=== PATIENT | female | born 1975 | race Caucasian/White ===

== ENCOUNTER 2020-10-29 11:59 | Inpatient (IN) | payer OTHER ==
[2020-10-29 13:09] VITALS: BMI 22.7
[2020-10-29] MEDS ORDERED: ACETAMINOPHEN 325 MG TABLET (FP) PO PRN (13:37)
[2020-10-29] MEDS ORDERED: METHADONE HCL 10 MG TABLET (FOR DETOX USE ONLY) PO ONE (13:37)
[2020-10-29] MEDS ORDERED: MAG HYDROX/AL HYDROX/SIMETH 30 ML UNIT-DOSE CUP PO PRN (13:37)
[2020-10-29] MEDS ORDERED: MENTHOL/PHENOL 1 EACH UD MM PRN (13:37)
[2020-10-29] MEDS ORDERED: MAGNESIUM HYDROX 2400MG/30ML ORAL SUSPENSION 30 ML CUP PO PRN (13:37)
[2020-10-29] MEDS ORDERED: MAGNESIUM CITRATE 300 ML BOTTLE PO PRN (13:37)
[2020-10-29] MEDS ORDERED: NICOTINE POLACRILEX 2 MG GUM BUC PRN (13:37)
[2020-10-29] MEDS ORDERED: cloNIDine HCL 0.1 MG TABLET PO PRN (13:37)
[2020-10-29] MEDS: METHOCARBAMOL 500 MG TABLET PO PRN (15:22)
[2020-10-29] MEDS: IBUPROFEN 400 MG TABLET (FP) PO PRN (15:23)
[2020-10-29] MEDS: PRENATAL VITAMINS W/ FOLIC ACID TABLET (FP) PO SCH (15:27)
[2020-10-29] MEDS: NICOTINE 21 MG/24 HOURS TOPICAL PATCH TD SCH (15:27)
[2020-10-29] MEDS: hydrOXYzine PAMOATE 25 MG CAPSULE (FP) PO SCH ×3 (15:27→21:49)
[2020-10-29 17:12] LABS: HEMATOCRIT 34.3 % (32.4-45.2); HEMOGLOBIN 11.1 GM/dL (10.7-15.3); MCH 30.5 pg (25.7-33.7); MCHC 32.4 g/dl (32.0-36.0); MEAN PLT VOLUME 8.9 fl (7.5-11.1); PLATELET COUNT 337 K/MM3 (134-434); RBC 3.65 M/mm3 (3.60-5.2); RDW 13.8 % (11.6-15.6); WHITE BLOOD COUNT 3.4 K/mm3 (4.0-10.0)
[2020-10-29 17:21] LABS: POTASSIUM 3.3 mmol/L (3.5-5.1)
[2020-10-29 17:27] LABS: CALCIUM 8.8 mg/dL (8.5-10.1)
[2020-10-29 17:31] LABS: CREATININE 0.7 mg/dL (0.55-1.3)
[2020-10-29 17:32] LABS: BILIRUBIN,TOTAL 0.2 mg/dL (0.2-1); TOT PROT 7.6 g/dl (6.4-8.2)
[2020-10-29] MEDS: guaiFENesin/D-METHORPHAN HB 10 ML UNIT-DOSE CUPS PO PRN (18:04)
[2020-10-29] MEDS: ONDANSETRON *ODT* 4 MG TABLET SL PRN (21:48)
[2020-10-29] MEDS: MELATONIN 5 MG TABLETS PO SCH (21:49)
[2020-10-29] MEDS: THIAMINE HCL 100 MG TABLET (FP) PO SCH (21:49)
[2020-10-30] MEDS: guaiFENesin/D-METHORPHAN HB 10 ML UNIT-DOSE CUPS PO PRN ×2 (00:57→17:30)
[2020-10-30] MEDS: ALBUTEROL SO4 HFA INHALER IH PRN ×2 (02:30→06:42)
[2020-10-30] MEDS: hydrOXYzine PAMOATE 25 MG CAPSULE (FP) PO SCH ×5 (05:15→22:14)
[2020-10-30] MEDS ORDERED: METHADONE HCL 10 MG TABLET (FOR DETOX USE ONLY) ONE (08:50)
[2020-10-30] MEDS ORDERED: METHADONE HCL 5 MG TABLET (FOR DETOX USE ONLY) ONE (08:50)
[2020-10-30] MEDS ORDERED: METHADONE (DETOX) 20 MG, METHADONE (DETOX) 5 MG PO ONE (10:00)
[2020-10-30] MEDS: NICOTINE 21 MG/24 HOURS TOPICAL PATCH TD SCH (10:03)
[2020-10-30] MEDS: IBUPROFEN 400 MG TABLET (FP) PO PRN ×2 (10:03→22:14)
[2020-10-30] MEDS: METHOCARBAMOL 500 MG TABLET PO PRN ×2 (10:03→22:16)
[2020-10-30] MEDS: PRENATAL VITAMINS W/ FOLIC ACID TABLET (FP) PO SCH (10:06)
[2020-10-30] MEDS: BISMUTH SUBSALICYLATE 262 MG/15 ML BTL PO PRN (13:28)
[2020-10-30] MEDS ORDERED: POTASSIUM CHLORIDE ORAL LIQUID 20 MEQ/15 ML PO ONE ×2 (16:17→21:30)
[2020-10-30] MEDS: THIAMINE HCL 100 MG TABLET (FP) PO SCH (22:14)
[2020-10-30] MEDS: MELATONIN 5 MG TABLETS PO SCH (22:14)
[2020-10-30] MEDS: BACITRACIN 0.9 GM PACKET TP SCH (22:17)
[2020-10-30] MEDS: MINERAL OIL/PETROLAT/WATER TOPICAL CREAM 113 GM JAR TP SCH (22:17)
[2020-10-31] MEDS: ACETAMINOPHEN 325 MG TABLET (FP) PO PRN ×2 (00:53→14:47)
[2020-10-31] MEDS: guaiFENesin/D-METHORPHAN HB 10 ML UNIT-DOSE CUPS PO PRN (04:03)
[2020-10-31] MEDS: hydrOXYzine PAMOATE 25 MG CAPSULE (FP) PO SCH ×5 (06:34→22:03)
[2020-10-31] MEDS ORDERED: MASKS NR ONE (07:22)
[2020-10-31] MEDS: BACITRACIN 0.9 GM PACKET TP SCH ×2 (09:11→22:03)
[2020-10-31] MEDS: METHOCARBAMOL 500 MG TABLET PO PRN ×2 (09:14→22:04)
[2020-10-31] MEDS: IBUPROFEN 400 MG TABLET (FP) PO PRN ×2 (09:14→22:03)
[2020-10-31] MEDS: MINERAL OIL/PETROLAT/WATER TOPICAL CREAM 113 GM JAR TP SCH ×2 (09:16→22:06)
[2020-10-31] MEDS: NICOTINE 21 MG/24 HOURS TOPICAL PATCH TD SCH (09:17)
[2020-10-31] MEDS ORDERED: METHADONE HCL 10 MG TABLET (FOR DETOX USE ONLY) PO ONE (10:00)
[2020-10-31] MEDS: PRENATAL VITAMINS W/ FOLIC ACID TABLET (FP) PO SCH (10:44)
[2020-10-31] MEDS: ALBUTEROL SO4 HFA INHALER IH PRN (12:23)
[2020-10-31] MEDS: BISMUTH SUBSALICYLATE 262 MG/15 ML BTL PO PRN (19:43)
[2020-10-31] MEDS: QUEtiapine FUMARATE 50 MG TABLET PO SCH (22:03)
[2020-10-31] MEDS: THIAMINE HCL 100 MG TABLET (FP) PO SCH (22:03)
[2020-10-31] MEDS: MELATONIN 5 MG TABLETS PO SCH (22:03)
[2020-10-31] MEDS: guaiFENesin 200 MG/10 ML 10 ML UNIT-DOSE CUPS PO PRN (22:07)
[2020-11-01] MEDS: hydrOXYzine PAMOATE 25 MG CAPSULE (FP) PO SCH ×5 (06:47→21:51)
[2020-11-01] MEDS: guaiFENesin 200 MG/10 ML 10 ML UNIT-DOSE CUPS PO PRN ×3 (09:17→23:00)
[2020-11-01] MEDS ORDERED: METHADONE HCL 5 MG TABLET (FOR DETOX USE ONLY) ONE (09:26)
[2020-11-01] MEDS ORDERED: METHADONE HCL 10 MG TABLET (FOR DETOX USE ONLY) ONE (09:27)
[2020-11-01] MEDS ORDERED: MASKS NR ONE (09:28)
[2020-11-01] MEDS ORDERED: METHADONE (DETOX) 10 MG, METHADONE (DETOX) 5 MG PO ONE (10:00)
[2020-11-01] MEDS: BACITRACIN 0.9 GM PACKET TP SCH ×2 (10:05→21:50)
[2020-11-01] MEDS: MINERAL OIL/PETROLAT/WATER TOPICAL CREAM 113 GM JAR TP SCH ×2 (10:05→21:50)
[2020-11-01] MEDS: METHOCARBAMOL 500 MG TABLET PO PRN ×2 (10:11→21:52)
[2020-11-01] MEDS: PRENATAL VITAMINS W/ FOLIC ACID TABLET (FP) PO SCH (10:12)
[2020-11-01] MEDS: NICOTINE 21 MG/24 HOURS TOPICAL PATCH TD SCH (10:13)
[2020-11-01] MEDS: GABAPENTIN 400 MG CAPSULE PO SCH ×2 (13:57→21:50)
[2020-11-01] MEDS: MELATONIN 5 MG TABLETS PO SCH (21:50)
[2020-11-01] MEDS: THIAMINE HCL 100 MG TABLET (FP) PO SCH (21:50)
[2020-11-01] MEDS: QUEtiapine FUMARATE 50 MG TABLET PO SCH (21:50)
[2020-11-01] MEDS: IBUPROFEN 400 MG TABLET (FP) PO PRN (21:52)
[2020-11-02] MEDS: GABAPENTIN 400 MG CAPSULE PO SCH ×3 (07:20→22:49)
[2020-11-02] MEDS: hydrOXYzine PAMOATE 25 MG CAPSULE (FP) PO SCH ×5 (07:20→22:49)
[2020-11-02] MEDS: guaiFENesin 200 MG/10 ML 10 ML UNIT-DOSE CUPS PO PRN ×3 (07:23→22:59)
[2020-11-02] MEDS ORDERED: METHADONE HCL 10 MG TABLET (FOR DETOX USE ONLY) PO ONE (10:00)
[2020-11-02] MEDS: MINERAL OIL/PETROLAT/WATER TOPICAL CREAM 113 GM JAR TP SCH ×2 (10:07→22:49)
[2020-11-02] MEDS: NICOTINE 21 MG/24 HOURS TOPICAL PATCH TD SCH (10:07)
[2020-11-02] MEDS: PRENATAL VITAMINS W/ FOLIC ACID TABLET (FP) PO SCH (10:08)
[2020-11-02] MEDS: BACITRACIN 0.9 GM PACKET TP SCH ×2 (10:08→22:49)
[2020-11-02] MEDS: METHOCARBAMOL 500 MG TABLET PO PRN ×2 (10:09→18:29)
[2020-11-02] MEDS: ACETAMINOPHEN 325 MG TABLET (FP) PO PRN (11:44)
[2020-11-02] MEDS: ALBUTEROL SO4 HFA INHALER IH PRN (11:46)
[2020-11-02] MEDS: ONDANSETRON *ODT* 4 MG TABLET SL PRN (16:52)
[2020-11-02] MEDS: BISMUTH SUBSALICYLATE 262 MG/15 ML BTL PO PRN (20:17)
[2020-11-02] MEDS: METHYL SALICYLATE/MENTHOL OINT 30 GM TUBE TP SCH (22:49)
[2020-11-02] MEDS: QUEtiapine FUMARATE 50 MG TABLET PO SCH (22:49)
[2020-11-02] MEDS: MELATONIN 5 MG TABLETS PO SCH (22:50)
[2020-11-02] MEDS: THIAMINE HCL 100 MG TABLET (FP) PO SCH (22:50)
[2020-11-03] MEDS ORDERED: METHADONE HCL 5 MG TABLET (FOR DETOX USE ONLY) PO ONE (06:00)
[2020-11-03] MEDS: hydrOXYzine PAMOATE 25 MG CAPSULE (FP) PO SCH ×2 (06:28→10:14)
[2020-11-03] MEDS: GABAPENTIN 400 MG CAPSULE PO SCH (06:29)
[2020-11-03] MEDS: METHOCARBAMOL 500 MG TABLET PO PRN (06:31)
[2020-11-03] MEDS: IBUPROFEN 400 MG TABLET (FP) PO PRN (06:31)
[2020-11-03] MEDS: ACETAMINOPHEN 325 MG TABLET (FP) PO PRN (08:34)
[2020-11-03 09:29] VITALS: BP 112/77; PULSE 781; TEMP 98.2
[2020-11-03] MEDS: PRENATAL VITAMINS W/ FOLIC ACID TABLET (FP) PO SCH (10:14)
[2020-11-03] MEDS: MINERAL OIL/PETROLAT/WATER TOPICAL CREAM 113 GM JAR TP SCH (10:14)
[2020-11-03] MEDS: BACITRACIN 0.9 GM PACKET TP SCH (10:15)
[2020-11-03] MEDS: NICOTINE 21 MG/24 HOURS TOPICAL PATCH TD SCH (10:15)
[2020-11-03] MEDS: METHYL SALICYLATE/MENTHOL OINT 30 GM TUBE TP SCH (10:15)
[2020-11-03] MEDS: guaiFENesin 200 MG/10 ML 10 ML UNIT-DOSE CUPS PO PRN (10:19)
[2020-11-03] MEDS: ONDANSETRON *ODT* 4 MG TABLET SL PRN (11:38)
== END 2020-11-03 11:39 | disposition other institution (70) | DRG 773 ==
LOC: YASAS 11:59 → Y6N 14:34
PROVIDERS: ADMIT Allergy & Immunology; ATTEND Allergy & Immunology
PROC: HZ2ZZZZ Detoxification Services for Substance Abuse Treatment (ICD-10-PCS; principal; 2020-10-29)
DX: F11.23 Opioid dependence with withdrawal (principal); F10.230 Alcohol dependence with withdrawal, uncomplicated; F14.20 Cocaine dependence, uncomplicated; F16.20 Hallucinogen dependence, uncomplicated; F17.210 Nicotine dependence, cigarettes, uncomplicated; F19.282 Other psychoactive substance dependence with psychoactive substance-induced sleep disorder; F19.24 Other psychoactive substance dependence with psychoactive substance-induced mood disorder; F25.9 Schizoaffective disorder, unspecified; B20 Human immunodeficiency virus [HIV] disease; G62.9 Polyneuropathy, unspecified; D72.810 Lymphocytopenia; L29.8 Other pruritus; J45.909 Unspecified asthma, uncomplicated; R05 Cough; Z62.810 Personal history of physical and sexual abuse in childhood; Z91.410 Personal history of adult physical and sexual abuse
CPT/HCPCS: 36415; 80053; 81025; 84132; 85027; 86780; C9803; J0735; Q0162; U0003

== ENCOUNTER 2020-11-03 11:20 | Inpatient (IN) | payer OTHER ==
[2020-11-03] MEDS ORDERED: MAG HYDROX/AL HYDROX/SIMETH 30 ML UNIT-DOSE CUP PO PRN (11:35)
[2020-11-03] MEDS ORDERED: P-EPHED 60MG/TRIPROLIDI 2.5MG TABLET PO PRN (11:35)
[2020-11-03] MEDS ORDERED: MAGNESIUM CITRATE 300 ML BOTTLE PO PRN (11:35)
[2020-11-03] MEDS ORDERED: NICOTINE POLACRILEX 4 MG GUM BUC PRN (11:35)
[2020-11-03] MEDS ORDERED: LOPERAMIDE HCL 2 MG CAPSULE PO PRN (11:35)
[2020-11-03] MEDS: GABAPENTIN 400 MG CAPSULE PO SCH ×2 (14:46→21:30)
[2020-11-03] MEDS: guaiFENesin 200 MG/10 ML 10 ML UNIT-DOSE CUPS PO PRN ×2 (14:47→21:36)
[2020-11-03] MEDS ORDERED: FLU VACCINE (FLULAVAL) PF 60 MCG/0.5 ML SYRINGE 2020-2021 IM ONE (16:00)
[2020-11-03] MEDS: IBUPROFEN 400 MG TABLET (FP) PO PRN (16:50)
[2020-11-03] MEDS: THIAMINE HCL 100 MG TABLET (FP) PO SCH (21:27)
[2020-11-03] MEDS: MELATONIN 5 MG TABLETS PO SCH (21:28)
[2020-11-03] MEDS: QUEtiapine FUMARATE 50 MG TABLET PO SCH (21:29)
[2020-11-03] MEDS: BACITRACIN 15 GM TUBE TOPICAL OINTMENT TP SCH (22:11)
[2020-11-04] MEDS: GABAPENTIN 400 MG CAPSULE PO SCH ×3 (06:08→21:18)
[2020-11-04] MEDS: ACETAMINOPHEN 325 MG TABLET (FP) PO PRN (06:08)
[2020-11-04] MEDS: PRENATAL VITAMINS W/ FOLIC ACID TABLET (FP) PO SCH (10:44)
[2020-11-04] MEDS: ALBUTEROL SO4 HFA INHALER IH PRN (10:45)
[2020-11-04] MEDS: NICOTINE 21 MG/24 HOURS TOPICAL PATCH TD SCH (10:46)
[2020-11-04] MEDS: BISMUTH SUBSALICYLATE 524 MG/30 ML UD PO PRN (10:47)
[2020-11-04] MEDS: MINERAL OIL/PETROLAT/WATER TOPICAL CREAM 113 GM JAR TP SCH (10:50)
[2020-11-04] MEDS: BACITRACIN 15 GM TUBE TOPICAL OINTMENT TP SCH ×2 (10:51→21:20)
[2020-11-04] MEDS: hydrOXYzine PAMOATE 25 MG CAPSULE (FP) PO PRN ×3 (10:52→18:14)
[2020-11-04] MEDS: IBUPROFEN 400 MG TABLET (FP) PO PRN (18:14)
[2020-11-04] MEDS: MELATONIN 5 MG TABLETS PO SCH (21:18)
[2020-11-04] MEDS: THIAMINE HCL 100 MG TABLET (FP) PO SCH (21:18)
[2020-11-04] MEDS: QUEtiapine FUMARATE 50 MG TABLET PO SCH (21:18)
[2020-11-04] MEDS: guaiFENesin 200 MG/10 ML 10 ML UNIT-DOSE CUPS PO PRN (21:19)
[2020-11-05] MEDS: GABAPENTIN 400 MG CAPSULE PO SCH ×3 (06:27→21:22)
[2020-11-05] MEDS: PRENATAL VITAMINS W/ FOLIC ACID TABLET (FP) PO SCH (10:21)
[2020-11-05] MEDS: IBUPROFEN 400 MG TABLET (FP) PO PRN (10:21)
[2020-11-05] MEDS: NICOTINE 21 MG/24 HOURS TOPICAL PATCH TD SCH (10:21)
[2020-11-05] MEDS: MINERAL OIL/PETROLAT/WATER TOPICAL CREAM 113 GM JAR TP SCH (10:21)
[2020-11-05] MEDS: hydrOXYzine PAMOATE 25 MG CAPSULE (FP) PO PRN ×2 (10:21→13:55)
[2020-11-05] MEDS: BACITRACIN 15 GM TUBE TOPICAL OINTMENT TP SCH ×2 (10:22→21:23)
[2020-11-05] MEDS ORDERED: PT OWN MED DRAWER 7, Y5N ONE (10:22)
[2020-11-05] MEDS: guaiFENesin 200 MG/10 ML 10 ML UNIT-DOSE CUPS PO PRN ×2 (10:23→21:22)
[2020-11-05] MEDS: QUEtiapine FUMARATE 50 MG TABLET PO SCH (21:22)
[2020-11-05] MEDS: THIAMINE HCL 100 MG TABLET (FP) PO SCH (21:22)
[2020-11-05] MEDS: MELATONIN 5 MG TABLETS PO SCH (21:22)
[2020-11-06] MEDS: GABAPENTIN 400 MG CAPSULE PO SCH ×3 (06:29→21:16)
[2020-11-06] MEDS: hydrOXYzine PAMOATE 25 MG CAPSULE (FP) PO PRN (10:27)
[2020-11-06] MEDS: NICOTINE 21 MG/24 HOURS TOPICAL PATCH TD SCH (10:27)
[2020-11-06] MEDS: PRENATAL VITAMINS W/ FOLIC ACID TABLET (FP) PO SCH (10:27)
[2020-11-06] MEDS: IBUPROFEN 400 MG TABLET (FP) PO PRN (10:28)
[2020-11-06] MEDS: guaiFENesin 200 MG/10 ML 10 ML UNIT-DOSE CUPS PO PRN ×2 (10:28→21:16)
[2020-11-06] MEDS: MINERAL OIL/PETROLAT/WATER TOPICAL CREAM 113 GM JAR TP SCH (10:29)
[2020-11-06] MEDS: BACITRACIN 15 GM TUBE TOPICAL OINTMENT TP SCH ×2 (10:30→21:18)
[2020-11-06] MEDS: ACETAMINOPHEN 325 MG TABLET (FP) PO PRN (14:27)
[2020-11-06] MEDS ORDERED: BUPRENORPHINE/NALOXONE 2 MG/0.5 MG FILM PACKET SL ONE (16:04)
[2020-11-06] MEDS: QUEtiapine FUMARATE 50 MG TABLET PO SCH (21:16)
[2020-11-06] MEDS: MELATONIN 5 MG TABLETS PO SCH (21:16)
[2020-11-06] MEDS: THIAMINE HCL 100 MG TABLET (FP) PO SCH (21:16)
[2020-11-06] MEDS: BUPRENORPHINE/NALOXONE 2 MG/0.5 MG FILM PACKET SL SCH (21:17)
[2020-11-07] MEDS: hydrOXYzine PAMOATE 25 MG CAPSULE (FP) PO PRN ×3 (01:45→13:43)
[2020-11-07] MEDS: ACETAMINOPHEN 325 MG TABLET (FP) PO PRN (01:45)
[2020-11-07] MEDS: GABAPENTIN 400 MG CAPSULE PO SCH ×3 (06:23→21:30)
[2020-11-07] MEDS: IBUPROFEN 400 MG TABLET (FP) PO PRN (06:23)
[2020-11-07] MEDS: BACITRACIN 15 GM TUBE TOPICAL OINTMENT TP SCH ×2 (10:25→21:32)
[2020-11-07] MEDS: METHOCARBAMOL 500 MG TABLET PO SCH ×4 (10:25→21:30)
[2020-11-07] MEDS: PRENATAL VITAMINS W/ FOLIC ACID TABLET (FP) PO SCH (10:25)
[2020-11-07] MEDS: METHYL SALICYLATE/MENTHOL OINT 30 GM TUBE TP SCH ×2 (10:26→21:34)
[2020-11-07] MEDS: NICOTINE 21 MG/24 HOURS TOPICAL PATCH TD SCH (10:28)
[2020-11-07] MEDS: MINERAL OIL/PETROLAT/WATER TOPICAL CREAM 113 GM JAR TP SCH (10:28)
[2020-11-07] MEDS: BUPRENORPHINE/NALOXONE 2 MG/0.5 MG FILM PACKET SL SCH (10:29)
[2020-11-07] MEDS ORDERED: BUPRENORPHINE/NALOXONE 2 MG/0.5 MG FILM PACKET SL ONE (11:05)
[2020-11-07] MEDS: LIDOCAINE 5% TOPICAL PATCH TP SCH (11:41)
[2020-11-07] MEDS: guaiFENesin 200 MG/10 ML 10 ML UNIT-DOSE CUPS PO PRN ×2 (11:41→21:35)
[2020-11-07 13:49] LABS: URINE APPEARANCE CLEAR; URINE BILIRUBIN NEGATIVE (NEGATIVE); URINE COLOR DK YELLOW; URINE GLUCOSE (UA) NEGATIVE (NEGATIVE); URINE KETONE TRACE (NEGATIVE); URINE LEUK ESTERASE NEGATIVE (NEGATIVE); URINE NITRITE NEGATIVE (NEGATIVE); URINE PROTEIN NEGATIVE (NEGATIVE); URINE UROBILINOGEN 0.2 mg/dL (0.2-1.0)
[2020-11-07] MEDS: BISMUTH SUBSALICYLATE 524 MG/30 ML UD PO PRN (14:47)
[2020-11-07] MEDS ORDERED: BUPRENORPHINE/NALOXONE 4 MG/1 MG FILM PACKET SL SCH ×2 (18:00→22:00)
[2020-11-07] MEDS: BUPRENORPHINE/NALOXONE 4 MG/1 MG FILM PACKET SL SCH (18:00)
[2020-11-07] MEDS: THIAMINE HCL 100 MG TABLET (FP) PO SCH (21:30)
[2020-11-07] MEDS: MELATONIN 5 MG TABLETS PO SCH (21:30)
[2020-11-07] MEDS: QUEtiapine FUMARATE 100 MG TABLET (FP) PO SCH (21:30)
[2020-11-07] MEDS: LIDOCAINE PATCH REMOVAL MC SCH (21:35)
[2020-11-07] MEDS: metroNIDAZOLE 0.75% VAGINAL GEL 70 GM TUBE VG SCH (21:35)
[2020-11-07] MEDS: busPIRone HCL 5 MG TABLET PO SCH (22:10)
[2020-11-08] MEDS ORDERED: PT OWN MED DRAWER 7, Y5N ONE ×3 (03:16→21:28)
[2020-11-08] MEDS: GABAPENTIN 400 MG CAPSULE PO SCH ×3 (06:04→21:25)
[2020-11-08] MEDS: busPIRone HCL 5 MG TABLET PO SCH ×3 (06:04→21:25)
[2020-11-08] MEDS: guaiFENesin 200 MG/10 ML 10 ML UNIT-DOSE CUPS PO PRN ×2 (06:06→19:02)
[2020-11-08] MEDS: BUPRENORPHINE/NALOXONE 4 MG/1 MG FILM PACKET SL SCH ×2 (10:16→18:01)
[2020-11-08] MEDS: LIDOCAINE 5% TOPICAL PATCH TP SCH (10:16)
[2020-11-08] MEDS: METHOCARBAMOL 500 MG TABLET PO SCH ×4 (10:16→21:25)
[2020-11-08] MEDS: NICOTINE 21 MG/24 HOURS TOPICAL PATCH TD SCH (10:16)
[2020-11-08] MEDS: PRENATAL VITAMINS W/ FOLIC ACID TABLET (FP) PO SCH (10:16)
[2020-11-08] MEDS: MINERAL OIL/PETROLAT/WATER TOPICAL CREAM 113 GM JAR TP SCH (10:18)
[2020-11-08] MEDS: BACITRACIN 15 GM TUBE TOPICAL OINTMENT TP SCH ×2 (10:19→21:26)
[2020-11-08] MEDS: METHYL SALICYLATE/MENTHOL OINT 30 GM TUBE TP SCH ×2 (10:19→21:26)
[2020-11-08] MEDS: ALBUTEROL SO4 HFA INHALER IH PRN (10:19)
[2020-11-08] MEDS: AZITHROMYCIN 250 MG TABLET PO SCH (12:47)
[2020-11-08] MEDS: ACETAMINOPHEN 325 MG TABLET (FP) PO PRN (15:21)
[2020-11-08] MEDS: THIAMINE HCL 100 MG TABLET (FP) PO SCH (21:25)
[2020-11-08] MEDS: MELATONIN 5 MG TABLETS PO SCH (21:25)
[2020-11-08] MEDS: QUEtiapine FUMARATE 100 MG TABLET (FP) PO SCH (21:25)
[2020-11-08] MEDS: metroNIDAZOLE 0.75% VAGINAL GEL 70 GM TUBE VG SCH (21:27)
[2020-11-08] MEDS: LIDOCAINE PATCH REMOVAL MC SCH (21:29)
[2020-11-09] MEDS: guaiFENesin 200 MG/10 ML 10 ML UNIT-DOSE CUPS PO PRN ×2 (01:17→16:45)
[2020-11-09] MEDS: ALBUTEROL SO4 HFA INHALER IH PRN ×2 (01:17→10:29)
[2020-11-09] MEDS ORDERED: PT OWN MED DRAWER 7, Y5N ONE ×2 (03:12→21:16)
[2020-11-09] MEDS: ACETAMINOPHEN 325 MG TABLET (FP) PO PRN (03:56)
[2020-11-09] MEDS: busPIRone HCL 5 MG TABLET PO SCH ×3 (05:57→21:14)
[2020-11-09] MEDS: GABAPENTIN 400 MG CAPSULE PO SCH ×3 (05:57→21:14)
[2020-11-09] MEDS: NICOTINE 21 MG/24 HOURS TOPICAL PATCH TD SCH (10:29)
[2020-11-09] MEDS: METHOCARBAMOL 500 MG TABLET PO SCH ×4 (10:29→21:14)
[2020-11-09] MEDS: PRENATAL VITAMINS W/ FOLIC ACID TABLET (FP) PO SCH (10:29)
[2020-11-09] MEDS: BACITRACIN 15 GM TUBE TOPICAL OINTMENT TP SCH ×2 (10:30→21:16)
[2020-11-09] MEDS: METHYL SALICYLATE/MENTHOL OINT 30 GM TUBE TP SCH ×2 (10:30→21:16)
[2020-11-09] MEDS: MINERAL OIL/PETROLAT/WATER TOPICAL CREAM 113 GM JAR TP SCH (10:31)
[2020-11-09] MEDS: LIDOCAINE 5% TOPICAL PATCH TP SCH (10:32)
[2020-11-09] MEDS: BUPRENORPHINE/NALOXONE 4 MG/1 MG FILM PACKET SL SCH ×2 (10:32→17:41)
[2020-11-09] MEDS: AZITHROMYCIN 250 MG TABLET PO SCH (10:33)
[2020-11-09] MEDS: IBUPROFEN 400 MG TABLET (FP) PO PRN (14:20)
[2020-11-09] MEDS: NYSTATIN 500,000 UNITS/5 ML SUSPENSION PO SCH ×2 (17:41→23:26)
[2020-11-09] MEDS: MELATONIN 5 MG TABLETS PO SCH (21:14)
[2020-11-09] MEDS: THIAMINE HCL 100 MG TABLET (FP) PO SCH (21:14)
[2020-11-09] MEDS: QUEtiapine FUMARATE 100 MG TABLET (FP) PO SCH (21:14)
[2020-11-09] MEDS: metroNIDAZOLE 0.75% VAGINAL GEL 70 GM TUBE VG SCH (21:15)
[2020-11-09] MEDS: LIDOCAINE PATCH REMOVAL MC SCH (21:16)
[2020-11-10] MEDS: GABAPENTIN 400 MG CAPSULE PO SCH ×3 (06:30→21:16)
[2020-11-10] MEDS: NYSTATIN 500,000 UNITS/5 ML SUSPENSION PO SCH ×4 (06:30→23:32)
[2020-11-10] MEDS: busPIRone HCL 5 MG TABLET PO SCH ×3 (06:30→21:16)
[2020-11-10] MEDS: IBUPROFEN 400 MG TABLET (FP) PO PRN ×2 (06:31→19:34)
[2020-11-10] MEDS ORDERED: PT OWN MED DRAWER 7, Y5N ONE ×2 (09:55→21:30)
[2020-11-10] MEDS: METHYL SALICYLATE/MENTHOL OINT 30 GM TUBE TP SCH ×2 (09:56→21:18)
[2020-11-10] MEDS: MINERAL OIL/PETROLAT/WATER TOPICAL CREAM 113 GM JAR TP SCH (09:57)
[2020-11-10] MEDS: LIDOCAINE 5% TOPICAL PATCH TP SCH (09:58)
[2020-11-10] MEDS: NICOTINE 21 MG/24 HOURS TOPICAL PATCH TD SCH (10:00)
[2020-11-10] MEDS: PRENATAL VITAMINS W/ FOLIC ACID TABLET (FP) PO SCH (10:01)
[2020-11-10] MEDS: BUPRENORPHINE/NALOXONE 4 MG/1 MG FILM PACKET SL SCH ×2 (10:01→17:57)
[2020-11-10] MEDS: AZITHROMYCIN 250 MG TABLET PO SCH (10:01)
[2020-11-10] MEDS: METHOCARBAMOL 500 MG TABLET PO SCH ×4 (10:01→21:16)
[2020-11-10] MEDS: BACITRACIN 15 GM TUBE TOPICAL OINTMENT TP SCH (13:48)
[2020-11-10] MEDS: ALBUTEROL SO4 HFA INHALER IH PRN (16:00)
[2020-11-10] MEDS: guaiFENesin 200 MG/10 ML 10 ML UNIT-DOSE CUPS PO PRN (19:35)
[2020-11-10] MEDS: BACITRACIN 0.9 GM PACKET TP SCH (21:16)
[2020-11-10] MEDS: MELATONIN 5 MG TABLETS PO SCH (21:16)
[2020-11-10] MEDS: THIAMINE HCL 100 MG TABLET (FP) PO SCH (21:16)
[2020-11-10] MEDS: QUEtiapine FUMARATE 100 MG TABLET (FP) PO SCH (21:16)
[2020-11-10] MEDS: LIDOCAINE PATCH REMOVAL MC SCH (21:18)
[2020-11-10] MEDS: metroNIDAZOLE 0.75% VAGINAL GEL 70 GM TUBE VG SCH (21:18)
[2020-11-11] MEDS ORDERED: PT OWN MED DRAWER 7, Y5N ONE ×2 (03:12→21:34)
[2020-11-11] MEDS: GABAPENTIN 400 MG CAPSULE PO SCH ×3 (06:38→21:29)
[2020-11-11] MEDS: busPIRone HCL 5 MG TABLET PO SCH ×3 (06:38→21:29)
[2020-11-11] MEDS: IBUPROFEN 400 MG TABLET (FP) PO PRN (06:38)
[2020-11-11] MEDS: NYSTATIN 500,000 UNITS/5 ML SUSPENSION PO SCH ×4 (06:41→23:17)
[2020-11-11] MEDS: BACITRACIN 0.9 GM PACKET TP SCH ×2 (10:31→21:32)
[2020-11-11] MEDS: BUPRENORPHINE/NALOXONE 4 MG/1 MG FILM PACKET SL SCH ×2 (10:31→17:50)
[2020-11-11] MEDS: METHOCARBAMOL 500 MG TABLET PO SCH ×4 (10:31→21:29)
[2020-11-11] MEDS: PRENATAL VITAMINS W/ FOLIC ACID TABLET (FP) PO SCH (10:31)
[2020-11-11] MEDS: NICOTINE 21 MG/24 HOURS TOPICAL PATCH TD SCH (10:31)
[2020-11-11] MEDS: LIDOCAINE 5% TOPICAL PATCH TP SCH (10:31)
[2020-11-11] MEDS: MINERAL OIL/PETROLAT/WATER TOPICAL CREAM 113 GM JAR TP SCH (10:33)
[2020-11-11] MEDS: METHYL SALICYLATE/MENTHOL OINT 30 GM TUBE TP SCH ×2 (10:35→21:34)
[2020-11-11] MEDS: AZITHROMYCIN 250 MG TABLET PO SCH (10:54)
[2020-11-11] MEDS: guaiFENesin 200 MG/10 ML 10 ML UNIT-DOSE CUPS PO PRN (13:43)
[2020-11-11] MEDS: MELATONIN 5 MG TABLETS PO SCH (21:29)
[2020-11-11] MEDS: QUEtiapine FUMARATE 100 MG TABLET (FP) PO SCH (21:29)
[2020-11-11] MEDS: THIAMINE HCL 100 MG TABLET (FP) PO SCH (21:29)
[2020-11-11] MEDS: LIDOCAINE PATCH REMOVAL MC SCH (21:30)
[2020-11-11] MEDS: metroNIDAZOLE 0.75% VAGINAL GEL 70 GM TUBE VG SCH (21:33)
[2020-11-12] MEDS: busPIRone HCL 5 MG TABLET PO SCH ×3 (06:23→21:20)
[2020-11-12] MEDS: GABAPENTIN 400 MG CAPSULE PO SCH ×3 (06:23→21:20)
[2020-11-12] MEDS: NYSTATIN 500,000 UNITS/5 ML SUSPENSION PO SCH ×4 (06:34→23:30)
[2020-11-12] MEDS: PRENATAL VITAMINS W/ FOLIC ACID TABLET (FP) PO SCH (10:07)
[2020-11-12] MEDS: NICOTINE 21 MG/24 HOURS TOPICAL PATCH TD SCH (10:07)
[2020-11-12] MEDS: METHOCARBAMOL 500 MG TABLET PO SCH ×4 (10:07→21:20)
[2020-11-12] MEDS: BUPRENORPHINE/NALOXONE 4 MG/1 MG FILM PACKET SL SCH ×2 (10:07→18:04)
[2020-11-12] MEDS: AZITHROMYCIN 250 MG TABLET PO SCH (10:07)
[2020-11-12] MEDS: BACITRACIN 0.9 GM PACKET TP SCH ×2 (10:08→21:21)
[2020-11-12] MEDS: METHYL SALICYLATE/MENTHOL OINT 30 GM TUBE TP SCH ×2 (10:08→21:21)
[2020-11-12] MEDS: LIDOCAINE 5% TOPICAL PATCH TP SCH (10:08)
[2020-11-12] MEDS: MINERAL OIL/PETROLAT/WATER TOPICAL CREAM 113 GM JAR TP SCH (10:13)
[2020-11-12] MEDS: ALBUTEROL SO4 HFA INHALER IH PRN (10:13)
[2020-11-12] MEDS: guaiFENesin 200 MG/10 ML 10 ML UNIT-DOSE CUPS PO PRN (20:01)
[2020-11-12] MEDS: QUEtiapine FUMARATE 100 MG TABLET (FP) PO SCH (21:20)
[2020-11-12] MEDS: MELATONIN 5 MG TABLETS PO SCH (21:21)
[2020-11-12] MEDS: THIAMINE HCL 100 MG TABLET (FP) PO SCH (21:21)
[2020-11-12] MEDS: LIDOCAINE PATCH REMOVAL MC SCH (21:21)
[2020-11-13] MEDS: GABAPENTIN 400 MG CAPSULE PO SCH ×3 (06:17→21:18)
[2020-11-13] MEDS: NYSTATIN 500,000 UNITS/5 ML SUSPENSION PO SCH ×2 (06:17→11:01)
[2020-11-13] MEDS: busPIRone HCL 5 MG TABLET PO SCH ×3 (06:17→21:19)
[2020-11-13] MEDS: BACITRACIN 0.9 GM PACKET TP SCH ×2 (10:12→21:19)
[2020-11-13] MEDS: LIDOCAINE 5% TOPICAL PATCH TP SCH (10:12)
[2020-11-13] MEDS: NICOTINE 21 MG/24 HOURS TOPICAL PATCH TD SCH (10:12)
[2020-11-13] MEDS: METHOCARBAMOL 500 MG TABLET PO SCH ×4 (10:12→21:18)
[2020-11-13] MEDS: METHYL SALICYLATE/MENTHOL OINT 30 GM TUBE TP SCH ×2 (10:12→21:20)
[2020-11-13] MEDS: PRENATAL VITAMINS W/ FOLIC ACID TABLET (FP) PO SCH (10:12)
[2020-11-13] MEDS: MINERAL OIL/PETROLAT/WATER TOPICAL CREAM 113 GM JAR TP SCH (10:14)
[2020-11-13] MEDS: ALBUTEROL SO4 HFA INHALER IH PRN (10:14)
[2020-11-13] MEDS: AZITHROMYCIN 250 MG TABLET PO SCH (10:54)
[2020-11-13] MEDS: BUPRENORPHINE/NALOXONE 4 MG/1 MG FILM PACKET SL SCH ×2 (10:55→18:24)
[2020-11-13] MEDS: CLOTRIMAZOLE 10 MG TROCHE PO SCH ×2 (18:24→21:20)
[2020-11-13] MEDS: QUEtiapine FUMARATE 100 MG TABLET (FP) PO SCH (21:18)
[2020-11-13] MEDS: MELATONIN 5 MG TABLETS PO SCH (21:19)
[2020-11-13] MEDS: THIAMINE HCL 100 MG TABLET (FP) PO SCH (21:19)
[2020-11-13] MEDS: MAGNESIUM HYDROX 2400MG/30ML ORAL SUSPENSION 30 ML CUP PO PRN (21:21)
[2020-11-13] MEDS: LIDOCAINE PATCH REMOVAL MC SCH (21:22)
[2020-11-14] MEDS: busPIRone HCL 5 MG TABLET PO SCH ×3 (06:32→21:27)
[2020-11-14] MEDS: CLOTRIMAZOLE 10 MG TROCHE PO SCH ×5 (06:32→22:05)
[2020-11-14] MEDS: GABAPENTIN 400 MG CAPSULE PO SCH ×3 (06:32→21:27)
[2020-11-14] MEDS ORDERED: FLUCONAZOLE 100 MG TABLET (UD) PO SCH (10:00)
[2020-11-14] MEDS: METHOCARBAMOL 500 MG TABLET PO SCH ×4 (10:21→21:27)
[2020-11-14] MEDS: PRENATAL VITAMINS W/ FOLIC ACID TABLET (FP) PO SCH (10:21)
[2020-11-14] MEDS: BUPRENORPHINE/NALOXONE 4 MG/1 MG FILM PACKET SL SCH ×2 (10:21→18:11)
[2020-11-14] MEDS: BACITRACIN 0.9 GM PACKET TP SCH ×2 (10:21→21:28)
[2020-11-14] MEDS: SULFAMETHOXAZOLE/TRIMETHOPRIM 800MG/160MG D.S. TABLET PO SCH (10:22)
[2020-11-14] MEDS: MINERAL OIL/PETROLAT/WATER TOPICAL CREAM 113 GM JAR TP SCH (10:22)
[2020-11-14] MEDS: METHYL SALICYLATE/MENTHOL OINT 30 GM TUBE TP SCH ×2 (10:22→21:28)
[2020-11-14] MEDS: LIDOCAINE 5% TOPICAL PATCH TP SCH (10:22)
[2020-11-14] MEDS: NICOTINE 21 MG/24 HOURS TOPICAL PATCH TD SCH (10:23)
[2020-11-14] MEDS: guaiFENesin 200 MG/10 ML 10 ML UNIT-DOSE CUPS PO PRN (10:23)
[2020-11-14] MEDS: ACETAMINOPHEN 325 MG TABLET (FP) PO PRN (13:10)
[2020-11-14] MEDS: MAGNESIUM HYDROX 2400MG/30ML ORAL SUSPENSION 30 ML CUP PO PRN (14:18)
[2020-11-14] MEDS: MELATONIN 5 MG TABLETS PO SCH (21:27)
[2020-11-14] MEDS: QUEtiapine FUMARATE 100 MG TABLET (FP) PO SCH (21:27)
[2020-11-14] MEDS: THIAMINE HCL 100 MG TABLET (FP) PO SCH (21:27)
[2020-11-14] MEDS: LIDOCAINE PATCH REMOVAL MC SCH (21:28)
[2020-11-15] MEDS: busPIRone HCL 5 MG TABLET PO SCH ×3 (06:06→21:42)
[2020-11-15] MEDS: CLOTRIMAZOLE 10 MG TROCHE PO SCH ×5 (06:06→21:42)
[2020-11-15] MEDS: GABAPENTIN 400 MG CAPSULE PO SCH ×3 (06:06→21:42)
[2020-11-15] MEDS: METHOCARBAMOL 500 MG TABLET PO SCH ×4 (11:01→21:42)
[2020-11-15] MEDS: PRENATAL VITAMINS W/ FOLIC ACID TABLET (FP) PO SCH (11:01)
[2020-11-15] MEDS: NICOTINE 21 MG/24 HOURS TOPICAL PATCH TD SCH (11:01)
[2020-11-15] MEDS: SULFAMETHOXAZOLE/TRIMETHOPRIM 800MG/160MG D.S. TABLET PO SCH (11:01)
[2020-11-15] MEDS: BUPRENORPHINE/NALOXONE 4 MG/1 MG FILM PACKET SL SCH ×2 (11:01→17:55)
[2020-11-15] MEDS: BACITRACIN 0.9 GM PACKET TP SCH ×2 (11:02→21:41)
[2020-11-15] MEDS: LIDOCAINE 5% TOPICAL PATCH TP SCH (11:03)
[2020-11-15] MEDS: ALBUTEROL SO4 HFA INHALER IH PRN (11:05)
[2020-11-15] MEDS: MINERAL OIL/PETROLAT/WATER TOPICAL CREAM 113 GM JAR TP SCH (11:05)
[2020-11-15] MEDS: METHYL SALICYLATE/MENTHOL OINT 30 GM TUBE TP SCH ×2 (11:06→21:41)
[2020-11-15] MEDS ORDERED: SODIUM CHLORIDE NASAL SPRAY 44 ML BOTTLE NS PRN (12:27)
[2020-11-15] MEDS: guaiFENesin 200 MG/10 ML 10 ML UNIT-DOSE CUPS PO PRN (15:15)
[2020-11-15] MEDS ORDERED: PT OWN MED DRAWER 7, Y5N ONE ×2 (17:56→18:26)
[2020-11-15] MEDS: LIDOCAINE PATCH REMOVAL MC SCH (21:42)
[2020-11-15] MEDS: MELATONIN 5 MG TABLETS PO SCH (21:42)
[2020-11-15] MEDS: QUEtiapine FUMARATE 100 MG TABLET (FP) PO SCH (21:43)
[2020-11-15] MEDS: THIAMINE HCL 100 MG TABLET (FP) PO SCH (21:43)
[2020-11-16] MEDS: CLOTRIMAZOLE 10 MG TROCHE PO SCH ×5 (06:10→21:22)
[2020-11-16] MEDS: busPIRone HCL 5 MG TABLET PO SCH ×3 (06:10→21:22)
[2020-11-16] MEDS: GABAPENTIN 400 MG CAPSULE PO SCH ×3 (06:10→21:22)
[2020-11-16] MEDS: METHOCARBAMOL 500 MG TABLET PO SCH ×4 (10:24→21:23)
[2020-11-16] MEDS: PRENATAL VITAMINS W/ FOLIC ACID TABLET (FP) PO SCH (10:24)
[2020-11-16] MEDS: BACITRACIN 0.9 GM PACKET TP SCH ×2 (10:24→21:21)
[2020-11-16] MEDS: SULFAMETHOXAZOLE/TRIMETHOPRIM 800MG/160MG D.S. TABLET PO SCH (10:24)
[2020-11-16] MEDS: NICOTINE 21 MG/24 HOURS TOPICAL PATCH TD SCH (10:25)
[2020-11-16] MEDS: METHYL SALICYLATE/MENTHOL OINT 30 GM TUBE TP SCH ×2 (10:25→21:24)
[2020-11-16] MEDS: MINERAL OIL/PETROLAT/WATER TOPICAL CREAM 113 GM JAR TP SCH (10:25)
[2020-11-16] MEDS: LIDOCAINE 5% TOPICAL PATCH TP SCH (10:25)
[2020-11-16] MEDS: BUPRENORPHINE/NALOXONE 4 MG/1 MG FILM PACKET SL SCH ×2 (10:25→18:29)
[2020-11-16] MEDS: ACETAMINOPHEN 325 MG TABLET (FP) PO PRN (12:08)
[2020-11-16] MEDS: MELATONIN 5 MG TABLETS PO SCH (21:21)
[2020-11-16] MEDS: THIAMINE HCL 100 MG TABLET (FP) PO SCH (21:21)
[2020-11-16] MEDS: QUEtiapine FUMARATE 100 MG TABLET (FP) PO SCH (21:22)
[2020-11-16] MEDS: LIDOCAINE PATCH REMOVAL MC SCH (21:23)
[2020-11-17] MEDS: GABAPENTIN 400 MG CAPSULE PO SCH ×3 (06:37→21:30)
[2020-11-17] MEDS: busPIRone HCL 5 MG TABLET PO SCH ×3 (06:37→21:30)
[2020-11-17] MEDS: CLOTRIMAZOLE 10 MG TROCHE PO SCH ×5 (06:38→21:31)
[2020-11-17] MEDS: METHOCARBAMOL 500 MG TABLET PO SCH ×4 (10:15→21:31)
[2020-11-17] MEDS: BUPRENORPHINE/NALOXONE 4 MG/1 MG FILM PACKET SL SCH ×2 (10:15→17:33)
[2020-11-17] MEDS: PRENATAL VITAMINS W/ FOLIC ACID TABLET (FP) PO SCH (10:15)
[2020-11-17] MEDS: BACITRACIN 0.9 GM PACKET TP SCH ×2 (10:15→21:29)
[2020-11-17] MEDS: SULFAMETHOXAZOLE/TRIMETHOPRIM 800MG/160MG D.S. TABLET PO SCH (10:15)
[2020-11-17] MEDS: NICOTINE 21 MG/24 HOURS TOPICAL PATCH TD SCH (10:16)
[2020-11-17] MEDS: MINERAL OIL/PETROLAT/WATER TOPICAL CREAM 113 GM JAR TP SCH (10:16)
[2020-11-17] MEDS: LIDOCAINE 5% TOPICAL PATCH TP SCH (10:16)
[2020-11-17] MEDS: METHYL SALICYLATE/MENTHOL OINT 30 GM TUBE TP SCH ×2 (10:16→21:30)
[2020-11-17] MEDS: IBUPROFEN 400 MG TABLET (FP) PO PRN (13:02)
[2020-11-17] MEDS: THIAMINE HCL 100 MG TABLET (FP) PO SCH (21:28)
[2020-11-17] MEDS: MELATONIN 5 MG TABLETS PO SCH (21:28)
[2020-11-17] MEDS: QUEtiapine FUMARATE 100 MG TABLET (FP) PO SCH (21:29)
[2020-11-17] MEDS: LIDOCAINE PATCH REMOVAL MC SCH (21:31)
[2020-11-18] MEDS: CLOTRIMAZOLE 10 MG TROCHE PO SCH ×5 (06:42→21:44)
[2020-11-18] MEDS: busPIRone HCL 5 MG TABLET PO SCH ×3 (06:42→21:43)
[2020-11-18] MEDS: GABAPENTIN 400 MG CAPSULE PO SCH ×3 (06:42→21:43)
[2020-11-18] MEDS: BUPRENORPHINE/NALOXONE 4 MG/1 MG FILM PACKET SL SCH ×2 (10:15→18:00)
[2020-11-18] MEDS: LIDOCAINE 5% TOPICAL PATCH TP SCH (10:15)
[2020-11-18] MEDS: BACITRACIN 0.9 GM PACKET TP SCH ×2 (10:15→21:45)
[2020-11-18] MEDS: PRENATAL VITAMINS W/ FOLIC ACID TABLET (FP) PO SCH (10:15)
[2020-11-18] MEDS: METHOCARBAMOL 500 MG TABLET PO SCH ×4 (10:15→21:43)
[2020-11-18] MEDS: MINERAL OIL/PETROLAT/WATER TOPICAL CREAM 113 GM JAR TP SCH (10:15)
[2020-11-18] MEDS: SULFAMETHOXAZOLE/TRIMETHOPRIM 800MG/160MG D.S. TABLET PO SCH (10:15)
[2020-11-18] MEDS: METHYL SALICYLATE/MENTHOL OINT 30 GM TUBE TP SCH ×2 (10:15→21:45)
[2020-11-18] MEDS: NICOTINE 21 MG/24 HOURS TOPICAL PATCH TD SCH (10:33)
[2020-11-18] MEDS: QUEtiapine FUMARATE 100 MG TABLET (FP) PO SCH (21:43)
[2020-11-18] MEDS: MELATONIN 5 MG TABLETS PO SCH (21:44)
[2020-11-18] MEDS: THIAMINE HCL 100 MG TABLET (FP) PO SCH (21:44)
[2020-11-18] MEDS: LIDOCAINE PATCH REMOVAL MC SCH (21:45)
[2020-11-19] MEDS: busPIRone HCL 5 MG TABLET PO SCH (06:13)
[2020-11-19] MEDS: CLOTRIMAZOLE 10 MG TROCHE PO SCH (06:13)
[2020-11-19] MEDS: GABAPENTIN 400 MG CAPSULE PO SCH (06:13)
[2020-11-19 07:03] VITALS: BP 98/58; PULSE 73; TEMP 97.7
[2020-11-19] MEDS: BACITRACIN 0.9 GM PACKET TP SCH (09:29)
[2020-11-19] MEDS: PRENATAL VITAMINS W/ FOLIC ACID TABLET (FP) PO SCH (09:29)
[2020-11-19] MEDS: METHOCARBAMOL 500 MG TABLET PO SCH (09:29)
[2020-11-19] MEDS: BUPRENORPHINE/NALOXONE 4 MG/1 MG FILM PACKET SL SCH (09:29)
[2020-11-19] MEDS: SULFAMETHOXAZOLE/TRIMETHOPRIM 800MG/160MG D.S. TABLET PO SCH (09:29)
== END 2020-11-19 09:46 | disposition home or self-care (01) | DRG 772 ==
LOC: YASAS 11:20 → Y3W 11:21
PROVIDERS: ADMIT Allergy & Immunology; ATTEND Allergy & Immunology
PROC: HZ42ZZZ Group Counseling for Substance Abuse Treatment, Cognitive-Behavioral (ICD-10-PCS; principal; 2020-11-03)
DX: F11.20 Opioid dependence, uncomplicated (principal); F10.20 Alcohol dependence, uncomplicated; F14.20 Cocaine dependence, uncomplicated; F17.210 Nicotine dependence, cigarettes, uncomplicated; F19.282 Other psychoactive substance dependence with psychoactive substance-induced sleep disorder; F19.24 Other psychoactive substance dependence with psychoactive substance-induced mood disorder; F25.9 Schizoaffective disorder, unspecified; B20 Human immunodeficiency virus [HIV] disease; B37.0 Candidal stomatitis; G62.9 Polyneuropathy, unspecified; G47.00 Insomnia, unspecified; J45.909 Unspecified asthma, uncomplicated; K21.9 Gastro-esophageal reflux disease without esophagitis; N39.0 Urinary tract infection, site not specified; N89.8 Other specified noninflammatory disorders of vagina; M54.89 Other dorsalgia; R05 Cough; R07.81 Pleurodynia; Z62.810 Personal history of physical and sexual abuse in childhood; Z91.410 Personal history of adult physical and sexual abuse; Z98.890 Other specified postprocedural states
CPT/HCPCS: 36415; 71046-TC-FY; 81003; 87491; 87591; C9803; G0008; Q2036; U0003

== ENCOUNTER 2023-08-11 13:07 | Inpatient (IN) | payer OTHER ==
[2023-08-11 14:28] VITALS: BMI 16.7
[2023-08-11] MEDS ORDERED: NALOXONE HCL 0.4 MG/ML VIAL IM PRN (16:22)
[2023-08-11] MEDS ORDERED: LOPERAMIDE HCL 2 MG CAPSULE PO PRN (16:22)
[2023-08-11] MEDS ORDERED: ONDANSETRON *ODT* 4 MG TABLET SL PRN (16:22)
[2023-08-11] MEDS ORDERED: DICYCLOMINE HCL 10 MG CAPSULE PO PRN (16:22)
[2023-08-11] MEDS ORDERED: BENZONATATE 200 MG CAPSULE PO PRN (16:22)
[2023-08-11] MEDS ORDERED: POLYETHYLENE GLYCOL (HEALTHYLAX) 3350 17 GM PACKET PO PRN (16:22)
[2023-08-11] MEDS ORDERED: BENZOCAINE/MENTHOL (CHLORASEPTIC ) LOZENGE MM PRN (16:22)
[2023-08-11] MEDS ORDERED: MAGNESIUM HYDROX 2400MG/30ML ORAL SUSPENSION 30 ML CUP PO PRN (16:22)
[2023-08-11] MEDS ORDERED: guaiFENesin 600 MG TABLET.ER (FP) PO PRN (16:22)
[2023-08-11] MEDS ORDERED: MAG HYDROX/AL HYDROX/SIMETH 30 ML UNIT-DOSE CUP PO PRN (16:22)
[2023-08-11] MEDS ORDERED: IBUPROFEN 400 MG TABLET (FP) PO PRN (16:22)
[2023-08-11] MEDS ORDERED: NALOXONE HCL (KLOXXADO) 8 MG SPRAY NS PRN (16:22)
[2023-08-11] MEDS ORDERED: NICOTINE POLACRILEX 2 MG GUM BUC PRN (16:22)
[2023-08-11] MEDS: IBUPROFEN 600 MG TABLET (FP) PO PRN (18:01)
[2023-08-11] MEDS: hydrOXYzine PAMOATE 25 MG CAPSULE (FP) PO PRN (18:02)
[2023-08-11] MEDS: BISMUTH SUBSALICYLATE 524 MG/30 ML PO PRN (18:03)
[2023-08-11] MEDS: MELATONIN 5 MG TABLETS PO SCH (22:58)
[2023-08-11] MEDS: THIAMINE HCL 100 MG TABLET (FP) PO SCH (22:58)
[2023-08-12] MEDS: METHOCARBAMOL 500 MG TABLET PO PRN ×2 (05:19→17:26)
[2023-08-12] MEDS: hydrOXYzine PAMOATE 25 MG CAPSULE (FP) PO PRN (05:19)
[2023-08-12] MEDS: NICOTINE 14 MG/24 HOURS TOPICAL PATCH TD SCH (09:24)
[2023-08-12] MEDS: PRENATAL VITAMINS W/ FOLIC ACID TABLET (FP) PO SCH (09:24)
[2023-08-12 10:30] LABS: HEMATOCRIT 27.7 % (32.4-45.2); MCH 28.3 pg (25.7-33.7); MCHC 32.6 g/dl (32.0-36.0); MEAN CELL VOLUME 86.8 fl (80-96); MEAN PLT VOLUME 7.9 fl (7.5-11.1); PLATELET COUNT 286 10^3/uL (134-434); RBC 3.19 M/mm3 (3.60-5.2); RDW 17.1 % (11.6-15.6)
[2023-08-12 10:35] LABS: CHLORIDE 105 mmol/L (98-107); SODIUM 138 mmol/L (136-145)
[2023-08-12 10:40] LABS: CALCIUM 8.5 mg/dL (8.5-10.1)
[2023-08-12 10:41] LABS: ALBUMIN 2.6 g/dl (3.4-5.0); ANION GAP 6 mmol/L (4-13); BLOOD UREA NITROGEN 17.3 mg/dL (7-18); CO2 27 mmol/L (21-32); GLUCOSE,RANDOM 89 mg/dL (74-106)
[2023-08-12 10:44] LABS: CREATININE 0.9 mg/dL (0.55-1.3); SGOT/AST 26 U/L (15-37); SGPT/ALT 17 U/L (13-61)
[2023-08-12 10:45] LABS: BILIRUBIN,TOTAL 0.7 mg/dL (0.2-1); TOT PROT 7.4 g/dl (6.4-8.2)
[2023-08-12 10:47] LABS: ALK PHOS 75 U/L (45-117)
[2023-08-12] MEDS: BISMUTH SUBSALICYLATE 524 MG/30 ML PO PRN (11:18)
[2023-08-12] MEDS ORDERED: ALBUTEROL SO4 HFA INHALER IH PRN ×2 (11:34→11:47)
[2023-08-12] MEDS ORDERED: methaDONE HCL 10 MG TABLET (FOR DETOX USE ONLY) PO ONE (11:55)
[2023-08-12] MEDS: cloNIDine HCL 0.1 MG TABLET PO PRN (12:22)
[2023-08-12] MEDS: MELATONIN 5 MG TABLETS PO SCH (22:07)
[2023-08-12] MEDS: THIAMINE HCL 100 MG TABLET (FP) PO SCH (22:07)
[2023-08-12] MEDS: QUEtiapine FUMARATE 100 MG TABLET (FP) PO SCH (22:07)
[2023-08-12] MEDS: IBUPROFEN 600 MG TABLET (FP) PO PRN (22:08)
[2023-08-13] MEDS: PRENATAL VITAMINS W/ FOLIC ACID TABLET (FP) PO SCH (09:19)
[2023-08-13] MEDS: IBUPROFEN 600 MG TABLET (FP) PO PRN ×2 (09:19→20:26)
[2023-08-13] MEDS: NICOTINE 14 MG/24 HOURS TOPICAL PATCH TD SCH (09:19)
[2023-08-13] MEDS: FERROUS SO4 325 MG TABLET (FP) PO SCH (09:31)
[2023-08-13] MEDS: NYSTATIN 500,000 UNITS/5 ML SUSPENSION PO SCH ×3 (11:59→23:10)
[2023-08-13] MEDS: diazePAM 5 MG TABLET PO PRN (14:01)
[2023-08-13] MEDS: cloNIDine HCL 0.1 MG TABLET PO PRN (20:26)
[2023-08-13] MEDS: MELATONIN 5 MG TABLETS PO SCH (22:19)
[2023-08-13] MEDS: THIAMINE HCL 100 MG TABLET (FP) PO SCH (22:20)
[2023-08-13] MEDS: QUEtiapine FUMARATE 100 MG TABLET (FP) PO SCH (22:20)
[2023-08-14] MEDS: NYSTATIN 500,000 UNITS/5 ML SUSPENSION PO SCH ×4 (05:47→23:15)
[2023-08-14] MEDS ORDERED: methaDONE HCL 10 MG TABLET (FOR DETOX USE ONLY) PO ONE (10:00)
[2023-08-14] MEDS: FERROUS SO4 325 MG TABLET (FP) PO SCH (10:21)
[2023-08-14] MEDS: PRENATAL VITAMINS W/ FOLIC ACID TABLET (FP) PO SCH (10:21)
[2023-08-14] MEDS: NICOTINE 14 MG/24 HOURS TOPICAL PATCH TD SCH (10:22)
[2023-08-14] MEDS: diazePAM 5 MG TABLET PO PRN ×2 (10:23→22:24)
[2023-08-14] MEDS: IBUPROFEN 600 MG TABLET (FP) PO PRN (10:23)
[2023-08-14] MEDS: ACETAMINOPHEN 325 MG TABLET (FP) PO PRN (16:11)
[2023-08-14] MEDS ORDERED: ONDANSETRON 8 MG TABLET (FP) PO ONE (18:53)
[2023-08-14] MEDS ORDERED: ONDANSETRON *ODT* 4 MG TABLET SL ONE (19:15)
[2023-08-14] MEDS: MELATONIN 5 MG TABLETS PO SCH (22:23)
[2023-08-14] MEDS: THIAMINE HCL 100 MG TABLET (FP) PO SCH (22:23)
[2023-08-14] MEDS: QUEtiapine FUMARATE 100 MG TABLET (FP) PO SCH (22:23)
[2023-08-14] MEDS: METHOCARBAMOL 500 MG TABLET PO PRN (22:23)
[2023-08-14] MEDS: MICONAZOLE NITRATE 2% VAGINAL CREAM 45 GM TUBE VG SCH (22:42)
[2023-08-15] MEDS: NYSTATIN 500,000 UNITS/5 ML SUSPENSION PO SCH ×3 (05:41→17:28)
[2023-08-15] MEDS: METHOCARBAMOL 500 MG TABLET PO PRN ×2 (05:43→22:13)
[2023-08-15] MEDS: FERROUS SO4 325 MG TABLET (FP) PO SCH (10:07)
[2023-08-15] MEDS: PRENATAL VITAMINS W/ FOLIC ACID TABLET (FP) PO SCH (10:07)
[2023-08-15] MEDS: IBUPROFEN 600 MG TABLET (FP) PO PRN (10:07)
[2023-08-15] MEDS: NICOTINE 14 MG/24 HOURS TOPICAL PATCH TD SCH (10:10)
[2023-08-15] MEDS: diazePAM 5 MG TABLET PO PRN (16:42)
[2023-08-15] MEDS: ACETAMINOPHEN 325 MG TABLET (FP) PO PRN (19:16)
[2023-08-15] MEDS ORDERED: METHYL SALICYLATE/MENTHOL OINT 30 GM TUBE TP PRN (19:26)
[2023-08-15] MEDS ORDERED: LIDOCAINE 5% TOPICAL PATCH TP ONE (19:37)
[2023-08-15] MEDS: THIAMINE HCL 100 MG TABLET (FP) PO SCH (22:13)
[2023-08-15] MEDS: QUEtiapine FUMARATE 100 MG TABLET (FP) PO SCH (22:13)
[2023-08-15] MEDS: MELATONIN 5 MG TABLETS PO SCH (22:13)
[2023-08-15] MEDS: MICONAZOLE NITRATE 2% VAGINAL CREAM 45 GM TUBE VG SCH (22:13)
[2023-08-15] MEDS: LIDOCAINE PATCH REMOVAL MC SCH (22:15)
[2023-08-16] MEDS: NYSTATIN 500,000 UNITS/5 ML SUSPENSION PO SCH ×5 (00:15→23:03)
[2023-08-16] MEDS: PRENATAL VITAMINS W/ FOLIC ACID TABLET (FP) PO SCH (09:25)
[2023-08-16] MEDS: NICOTINE 14 MG/24 HOURS TOPICAL PATCH TD SCH (09:25)
[2023-08-16] MEDS: FERROUS SO4 325 MG TABLET (FP) PO SCH (09:25)
[2023-08-16] MEDS ORDERED: methaDONE HCL 10 MG TABLET (FOR DETOX USE ONLY) PO ONE (10:00)
[2023-08-16] MEDS: IBUPROFEN 600 MG TABLET (FP) PO PRN ×2 (10:45→17:13)
[2023-08-16] MEDS: METHOCARBAMOL 500 MG TABLET PO PRN (13:57)
[2023-08-16] MEDS ORDERED: TRIMETHOBENZAMIDE HCL 200MG/2ML INJ IM ONE (14:57)
[2023-08-16] MEDS: diazePAM 5 MG TABLET PO PRN (17:13)
[2023-08-16 17:36] VITALS: RESP 16
[2023-08-16] MEDS: BISMUTH SUBSALICYLATE 524 MG/30 ML PO PRN (19:56)
[2023-08-16] MEDS: MICONAZOLE NITRATE 2% VAGINAL CREAM 45 GM TUBE VG SCH (21:37)
[2023-08-16] MEDS: QUEtiapine FUMARATE 100 MG TABLET (FP) PO SCH (21:38)
[2023-08-16] MEDS: MELATONIN 5 MG TABLETS PO SCH (21:38)
[2023-08-16] MEDS: THIAMINE HCL 100 MG TABLET (FP) PO SCH (21:39)
[2023-08-16] MEDS ORDERED: LIDOCAINE 4% PATCH TP ONE (21:53)
[2023-08-16] MEDS: LIDOCAINE PATCH REMOVAL MC SCH (23:49)
[2023-08-17] MEDS: NYSTATIN 500,000 UNITS/5 ML SUSPENSION PO SCH ×2 (06:39→11:29)
[2023-08-17] MEDS ORDERED: LIDOCAINE PATCH REMOVAL MC SCH (10:00)
[2023-08-17] MEDS: ACETAMINOPHEN 325 MG TABLET (FP) PO PRN (10:07)
[2023-08-17] MEDS: METHOCARBAMOL 500 MG TABLET PO PRN (10:07)
[2023-08-17] MEDS: PRENATAL VITAMINS W/ FOLIC ACID TABLET (FP) PO SCH (10:08)
[2023-08-17] MEDS: FERROUS SO4 325 MG TABLET (FP) PO SCH (10:08)
[2023-08-17] MEDS: NICOTINE 14 MG/24 HOURS TOPICAL PATCH TD SCH (10:09)
[2023-08-17] MEDS: IBUPROFEN 600 MG TABLET (FP) PO PRN (11:32)
[2023-08-17 13:46] VITALS: BP 126/68; PULSE 83; TEMP 97.9
[2023-08-17] MEDS: diazePAM 5 MG TABLET PO PRN (13:51)
== END 2023-08-17 14:25 | disposition home or self-care (01) | DRG 773 ==
LOC: YASAS 13:07 → Y3N 16:53
PROVIDERS: ADMIT Allergy & Immunology; ATTEND Surgery
PROC: HZ2ZZZZ Detoxification Services for Substance Abuse Treatment (ICD-10-PCS; principal; 2023-08-11)
DX: F11.23 Opioid dependence with withdrawal (principal); F10.230 Alcohol dependence with withdrawal, uncomplicated; F14.20 Cocaine dependence, uncomplicated; F17.210 Nicotine dependence, cigarettes, uncomplicated; F25.9 Schizoaffective disorder, unspecified; B20 Human immunodeficiency virus [HIV] disease; B37.0 Candidal stomatitis; G62.9 Polyneuropathy, unspecified; M54.50 Low back pain, unspecified; G89.29 Other chronic pain; N89.8 Other specified noninflammatory disorders of vagina; R11.0 Nausea
CPT/HCPCS: 36415; 80053; 80307; 81025; 85027; 86780; 87491; 87591; 87635; 87661; Q0162

== ENCOUNTER 2023-10-05 12:57 | Inpatient (IN) | payer OTHER ==
[2023-10-05 14:53] VITALS: BMI 16.9
[2023-10-05] MEDS ORDERED: methaDONE HCL 10 MG TABLET (FOR DETOX USE ONLY) PO ONE (17:24)
[2023-10-05] MEDS ORDERED: POLYETHYLENE GLYCOL (HEALTHYLAX) 3350 17 GM PACKET PO PRN (17:24)
[2023-10-05] MEDS ORDERED: BENZOCAINE/MENTHOL (CHLORASEPTIC ) LOZENGE MM PRN (17:24)
[2023-10-05] MEDS ORDERED: P-EPHED 60MG/TRIPROLIDI 2.5MG TABLET PO PRN (17:24)
[2023-10-05] MEDS ORDERED: NALOXONE HCL 0.4 MG/ML VIAL IM PRN (17:24)
[2023-10-05] MEDS ORDERED: BENZONATATE 200 MG CAPSULE PO PRN (17:24)
[2023-10-05] MEDS ORDERED: NALOXONE HCL (KLOXXADO) 8 MG SPRAY NS PRN (17:24)
[2023-10-05] MEDS ORDERED: MAGNESIUM HYDROX 2400MG/30ML ORAL SUSPENSION 30 ML CUP PO PRN (17:24)
[2023-10-05] MEDS ORDERED: IBUPROFEN 400 MG TABLET (FP) PO PRN (17:24)
[2023-10-05] MEDS ORDERED: DICYCLOMINE HCL 10 MG CAPSULE PO PRN (17:24)
[2023-10-05] MEDS ORDERED: guaiFENesin 600 MG TABLET.ER (FP) PO PRN (17:24)
[2023-10-05] MEDS: ACETAMINOPHEN 325 MG TABLET (FP) PO PRN (17:45)
[2023-10-05] MEDS: MELATONIN 5 MG TABLETS PO SCH (22:26)
[2023-10-05] MEDS: THIAMINE HCL 100 MG TABLET (FP) PO SCH (22:26)
[2023-10-06] MEDS: METHOCARBAMOL 500 MG TABLET PO PRN (10:07)
[2023-10-06] MEDS: PRENATAL VITAMINS W/ FOLIC ACID TABLET (FP) PO SCH (10:07)
[2023-10-06] MEDS: NICOTINE 14 MG/24 HOURS TOPICAL PATCH TD SCH (10:08)
[2023-10-06 12:21] LABS: CHLORIDE 106 mmol/L (98-107); POTASSIUM 3.6 mmol/L (3.5-5.1); SODIUM 142 mmol/L (136-145)
[2023-10-06 12:25] LABS: ALBUMIN 2.5 g/dl (3.4-5.0)
[2023-10-06 12:26] LABS: CALCIUM 8.8 mg/dL (8.5-10.1)
[2023-10-06 12:27] LABS: ANION GAP 6 mmol/L (4-13); BLOOD UREA NITROGEN 13.1 mg/dL (7-18); CO2 29 mmol/L (21-32); GLUCOSE,RANDOM 87 mg/dL (74-106)
[2023-10-06 12:30] LABS: SGOT/AST 28 U/L (15-37); SGPT/ALT 18 U/L (13-61)
[2023-10-06 12:31] LABS: TOT PROT 7.1 g/dl (6.4-8.2)
[2023-10-06 12:32] LABS: ALK PHOS 76 U/L (45-117); HEMATOCRIT 28.2 % (32.4-45.2); MCH 27.6 pg (25.7-33.7); MCHC 31.8 g/dl (32.0-36.0); MEAN CELL VOLUME 86.7 fl (80-96); PLATELET COUNT 278 10^3/uL (134-434); RBC 3.25 M/mm3 (3.60-5.2); RDW 16.4 % (11.6-15.6); WHITE BLOOD COUNT 4.4 K/mm3 (4.0-10.0)
[2023-10-06 12:34] LABS: BILIRUBIN,TOTAL 0.2 mg/dL (0.2-1)
[2023-10-06] MEDS ORDERED: ALBUTEROL SO4 HFA INHALER IH PRN (13:49)
[2023-10-06] MEDS: MELATONIN 5 MG TABLETS PO SCH (23:04)
[2023-10-06] MEDS: THIAMINE HCL 100 MG TABLET (FP) PO SCH (23:04)
[2023-10-07] MEDS: BISMUTH SUBSALICYLATE 524 MG/30 ML PO PRN ×2 (08:41→22:12)
[2023-10-07] MEDS: METHOCARBAMOL 500 MG TABLET PO PRN (08:41)
[2023-10-07] MEDS ORDERED: methaDONE HCL 10 MG TABLET (FOR DETOX USE ONLY) PO ONE (10:00)
[2023-10-07] MEDS: cloNIDine HCL 0.1 MG TABLET PO PRN ×2 (10:05→14:28)
[2023-10-07] MEDS: PRENATAL VITAMINS W/ FOLIC ACID TABLET (FP) PO SCH (10:05)
[2023-10-07] MEDS: NICOTINE 14 MG/24 HOURS TOPICAL PATCH TD SCH (10:06)
[2023-10-07] MEDS: IBUPROFEN 600 MG TABLET (FP) PO PRN (11:52)
[2023-10-07] MEDS: NICOTINE POLACRILEX 2 MG GUM BUC PRN (12:26)
[2023-10-07] MEDS: MAG HYDROX/AL HYDROX/SIMETH 30 ML UNIT-DOSE CUP PO PRN (16:47)
[2023-10-07] MEDS: THIAMINE HCL 100 MG TABLET (FP) PO SCH (22:12)
[2023-10-07] MEDS: MELATONIN 5 MG TABLETS PO SCH (22:12)
[2023-10-08] MEDS: BISMUTH SUBSALICYLATE 524 MG/30 ML PO PRN ×3 (02:42→14:10)
[2023-10-08] MEDS: IBUPROFEN 600 MG TABLET (FP) PO PRN ×2 (09:08→18:19)
[2023-10-08] MEDS: FERROUS SO4 325 MG TABLET (FP) PO SCH (10:02)
[2023-10-08] MEDS: PRENATAL VITAMINS W/ FOLIC ACID TABLET (FP) PO SCH (10:02)
[2023-10-08] MEDS: NICOTINE POLACRILEX 2 MG GUM BUC PRN (10:03)
[2023-10-08] MEDS: NICOTINE 14 MG/24 HOURS TOPICAL PATCH TD SCH (10:40)
[2023-10-08] MEDS: NYSTATIN 500,000 UNITS/5 ML SUSPENSION PO SCH ×2 (11:25→18:20)
[2023-10-08] MEDS: MAG HYDROX/AL HYDROX/SIMETH 30 ML UNIT-DOSE CUP PO PRN (13:07)
[2023-10-08] MEDS: AMMONIUM LACTATE 12% LOTION 225 GM BOTTLE TP PRN (15:48)
[2023-10-08] MEDS: METHOCARBAMOL 500 MG TABLET PO PRN (18:20)
[2023-10-08] MEDS: ACETAMINOPHEN 325 MG TABLET (FP) PO PRN (20:07)
[2023-10-08] MEDS: QUEtiapine FUMARATE 50 MG TABLET PO SCH (22:22)
[2023-10-08] MEDS: THIAMINE HCL 100 MG TABLET (FP) PO SCH (22:22)
[2023-10-08] MEDS: MELATONIN 5 MG TABLETS PO SCH (22:22)
[2023-10-09] MEDS: NYSTATIN 500,000 UNITS/5 ML SUSPENSION PO SCH ×4 (00:03→18:30)
[2023-10-09] MEDS: FERROUS SO4 325 MG TABLET (FP) PO SCH (09:23)
[2023-10-09] MEDS: METHOCARBAMOL 500 MG TABLET PO PRN ×2 (09:23→18:30)
[2023-10-09] MEDS: NICOTINE 14 MG/24 HOURS TOPICAL PATCH TD SCH (09:23)
[2023-10-09] MEDS: PRENATAL VITAMINS W/ FOLIC ACID TABLET (FP) PO SCH (09:24)
[2023-10-09] MEDS ORDERED: methaDONE HCL 10 MG TABLET (FOR DETOX USE ONLY) PO ONE (10:00)
[2023-10-09] MEDS: BISMUTH SUBSALICYLATE 524 MG/30 ML PO PRN (11:07)
[2023-10-09] MEDS: ACETAMINOPHEN 325 MG TABLET (FP) PO PRN (13:55)
[2023-10-09] MEDS: MAG HYDROX/AL HYDROX/SIMETH 30 ML UNIT-DOSE CUP PO PRN (15:53)
[2023-10-09] MEDS: THIAMINE HCL 100 MG TABLET (FP) PO SCH (22:37)
[2023-10-09] MEDS: MELATONIN 5 MG TABLETS PO SCH (22:37)
[2023-10-09] MEDS: IBUPROFEN 600 MG TABLET (FP) PO PRN (22:37)
[2023-10-09] MEDS: QUEtiapine FUMARATE 50 MG TABLET PO SCH (22:37)
[2023-10-09] MEDS: AMMONIUM LACTATE 12% LOTION 225 GM BOTTLE TP PRN (22:38)
[2023-10-10] MEDS: NYSTATIN 500,000 UNITS/5 ML SUSPENSION PO SCH ×3 (00:11→12:46)
[2023-10-10 09:06] VITALS: BP 101/67; PULSE 68; RESP 18; TEMP 98.1
[2023-10-10] MEDS: PRENATAL VITAMINS W/ FOLIC ACID TABLET (FP) PO SCH (10:42)
[2023-10-10] MEDS: FERROUS SO4 325 MG TABLET (FP) PO SCH (10:42)
[2023-10-10] MEDS: METHOCARBAMOL 500 MG TABLET PO PRN (10:43)
[2023-10-10] MEDS: NICOTINE 14 MG/24 HOURS TOPICAL PATCH TD SCH (10:43)
[2023-10-10] MEDS: BISMUTH SUBSALICYLATE 524 MG/30 ML PO PRN (14:01)
== END 2023-10-10 14:26 | disposition home or self-care (01) | DRG 773 ==
LOC: YASAS 12:57 → Y3N 17:34
PROVIDERS: ADMIT Allergy & Immunology; ATTEND Surgery
PROC: HZ2ZZZZ Detoxification Services for Substance Abuse Treatment (ICD-10-PCS; principal; 2023-10-05)
DX: F11.23 Opioid dependence with withdrawal (principal); F10.20 Alcohol dependence, uncomplicated; F14.20 Cocaine dependence, uncomplicated; F17.210 Nicotine dependence, cigarettes, uncomplicated; F25.9 Schizoaffective disorder, unspecified; F19.24 Other psychoactive substance dependence with psychoactive substance-induced mood disorder; B20 Human immunodeficiency virus [HIV] disease; B37.0 Candidal stomatitis; G62.9 Polyneuropathy, unspecified; D64.9 Anemia, unspecified; G47.00 Insomnia, unspecified; Z62.810 Personal history of physical and sexual abuse in childhood; Z91.410 Personal history of adult physical and sexual abuse; Z63.8 Other specified problems related to primary support group; Z86.19 Personal history of other infectious and parasitic diseases; Z91.148 Patient's other noncompliance with medication regimen for other reason; Z91.199 Patient's noncompliance with other medical treatment and regimen due to unspecified reason
CPT/HCPCS: 36415; 80053; 80307; 81025; 85027; 86780; 87635

== ENCOUNTER 2024-03-21 12:31 | Inpatient (IN) | payer OTHER ==
[2024-03-21] MEDS ORDERED: NALOXONE (NARCAN) HCL 4 MG/0.1 ML SPRAY NS PRN (15:28)
[2024-03-21] MEDS ORDERED: BISMUTH SUBSALICYLATE 524 MG/30 ML PO PRN (15:28)
[2024-03-21] MEDS ORDERED: NALOXONE HCL 0.4 MG/ML VIAL IM PRN (15:28)
[2024-03-21] MEDS ORDERED: BENZOCAINE/MENTHOL (CHLORASEPTIC ) LOZENGE MM PRN (15:28)
[2024-03-21] MEDS ORDERED: MAGNESIUM HYDROX 2400MG/30ML ORAL SUSPENSION 30 ML CUP PO PRN (15:28)
[2024-03-21] MEDS ORDERED: POLYETHYLENE GLYCOL (HEALTHYLAX) 3350 17 GM PACKET PO PRN (15:28)
[2024-03-21] MEDS ORDERED: MAG HYDROX/AL HYDROX/SIMETH 30 ML UNIT-DOSE CUP PO PRN (15:28)
[2024-03-21] MEDS ORDERED: LOPERAMIDE HCL 2 MG CAPSULE PO PRN (15:28)
[2024-03-21 15:49] VITALS: BMI 17.2
[2024-03-21] MEDS ORDERED: methaDONE HCL 10 MG TABLET ONE (16:40)
[2024-03-21] MEDS: methaDONE HCL 10 MG TABLET PO ONE (16:53)
[2024-03-21] MEDS: NICOTINE 14 MG/24 HOURS TOPICAL PATCH TD SCH (16:54)
[2024-03-21] MEDS: PRENATAL VITAMINS W/ FOLIC ACID TABLET (FP) PO SCH (16:54)
[2024-03-21] MEDS ORDERED: methaDONE HCL 10 MG TABLET PO PRN (17:29)
[2024-03-21] MEDS: IBUPROFEN 600 MG TABLET (FP) PO PRN (17:48)
[2024-03-21] MEDS: METHOCARBAMOL 500 MG TABLET PO PRN (17:48)
[2024-03-21] MEDS: cloNIDine HCL 0.1 MG TABLET PO SCH (17:48)
[2024-03-21] MEDS: hydrOXYzine PAMOATE 25 MG CAPSULE (FP) PO PRN (17:49)
[2024-03-21] MEDS: BICTEGRAV/EMTRICIT/TENOFOV (BIKTARVY) 50-200-25 MG TABLET PO SCH ×2 (18:08→18:09)
[2024-03-21] MEDS: THIAMINE 100 MG TABLET PO SCH (23:02)
[2024-03-21] MEDS: MELATONIN 5 MG TABLETS PO SCH (23:03)
[2024-03-21] MEDS: ACETAMINOPHEN 325 MG TABLET (FP) PO PRN (23:03)
[2024-03-22] MEDS: IBUPROFEN 400 MG TABLET (FP) PO PRN (05:45)
[2024-03-22] MEDS: methaDONE 40 MG, methaDONE 10 MG PO ONE (10:20)
[2024-03-22] MEDS: LIDOCAINE VISCOUS 2% ORAL/TOP 15 ML UNIT-DOSE CUP MM PRN (16:59)
[2024-03-22] MEDS: ONDANSETRON *ODT* 4 MG TABLET SL PRN (18:35)
[2024-03-22] MEDS: ALBUTEROL SO4 HFA INHALER IH PRN (21:51)
[2024-03-22] MEDS: risperiDONE 0.5 MG TABLET PO SCH (21:51)
[2024-03-22] MEDS: BENZONATATE 200 MG CAPSULE PO PRN (21:52)
[2024-03-22] MEDS: guaiFENesin 600 MG TABLET.ER (FP) PO PRN (21:52)
[2024-03-22] MEDS: DICYCLOMINE HCL 10 MG CAPSULE PO PRN (23:46)
[2024-03-23] MEDS: methaDONE 40 MG, methaDONE 20 MG PO ONE (10:20)
[2024-03-23] MEDS: MINERAL OIL/PETROLAT/WATER TOPICAL CREAM 113 GM JAR TP SCH (10:41)
[2024-03-23] MEDS: cloNIDine HCL 0.1 MG TABLET PO PRN (18:57)
[2024-03-23] MEDS: ACETAMINOPHEN 500 MG TABLET (FP) PO ONE (19:36)
[2024-03-23] MEDS: SULFAMETHOXAZOLE/TRIMETHOPRIM 800MG/160MG D.S. TABLET PO SCH (19:36)
[2024-03-23] MEDS: HYDROCORTISONE 0.5% TOPICAL CREAM 30 GM TUBE TP PRN (22:46)
[2024-03-24] MEDS: methaDONE 40 MG, methaDONE 30 MG PO ONE (10:13)
[2024-03-24] MEDS: GABAPENTIN 300 MG CAPSULE PO SCH (14:12)
[2024-03-25] MEDS ORDERED: CLINDAMYCIN HCL 150 MG CAPSULE (FP) PO SCH (07:15)
[2024-03-25] MEDS: CLINDAMYCIN HCL 150 MG CAPSULE (FP) PO SCH (07:15)
[2024-03-25] MEDS: methaDONE 40 MG, methaDONE 30 MG PO ONE (09:13)
[2024-03-25] MEDS ORDERED: methaDONE HCL 40 MG DISPERSABLE TABLET PO ONE ×2 (10:00)
[2024-03-25] MEDS: MELATONIN 5 MG TABLETS PO PRN (22:29)
[2024-03-26] MEDS ORDERED: methaDONE 80 MG, methaDONE 10 MG PO ONE (10:00)
[2024-03-26] MEDS: methaDONE 40 MG, methaDONE 30 MG PO ONE (10:56)
[2024-03-26] MEDS: risperiDONE 0.5 MG TABLET PO SCH (10:58)
[2024-03-26] MEDS: methaDONE HCL 10 MG TABLET PO ONE (12:45)
[2024-03-26] MEDS ORDERED: methaDONE 40 MG, methaDONE 30 MG PO ONE (16:15)
[2024-03-27] MEDS: methaDONE 40 MG, methaDONE 30 MG PO ONE (05:50)
[2024-03-27] MEDS ORDERED: methaDONE HCL 10 MG TABLET PO ONE (10:00)
[2024-03-27 21:30] VITALS: RESP 16
[2024-03-28 09:13] VITALS: BP 112/60; PULSE 74; TEMP 97.7
[2024-03-28] MEDS: methaDONE 40 MG, methaDONE 30 MG PO ONE (09:28)
== END 2024-03-28 10:44 | disposition home or self-care (01) | DRG 773 ==
LOC: YASAS 12:31 → Y6N 15:35
PROVIDERS: ADMIT Allergy & Immunology; ATTEND Surgery
PROC: HZ2ZZZZ Detoxification Services for Substance Abuse Treatment (ICD-10-PCS; principal; 2024-03-21)
DX: F11.23 Opioid dependence with withdrawal (principal); F14.20 Cocaine dependence, uncomplicated; F16.20 Hallucinogen dependence, uncomplicated; F17.210 Nicotine dependence, cigarettes, uncomplicated; F19.24 Other psychoactive substance dependence with psychoactive substance-induced mood disorder; B20 Human immunodeficiency virus [HIV] disease; L03.116 Cellulitis of left lower limb; K21.9 Gastro-esophageal reflux disease without esophagitis; S09.90XA Unspecified injury of head, initial encounter; W18.2XXA Fall in (into) shower or empty bathtub, initial encounter; Y92.231 Patient bathroom in hospital as the place of occurrence of the external cause; Z62.810 Personal history of physical and sexual abuse in childhood; Z91.410 Personal history of adult physical and sexual abuse; Z63.8 Other specified problems related to primary support group; Z63.0 Problems in relationship with spouse or partner
CPT/HCPCS: 80305; 80307; 81025; 93005; 93010; Q0162

== ENCOUNTER 2024-03-24 19:09 | Emergency (ER) | payer OTHER ==
[2024-03-24 19:33] VITALS: BP 121/63; PULSE 62; RESP 10; TEMP 98.6; BMI 20.1
[2024-03-24 20:43] LABS: INR 0.96 (0.83-1.09); PROTHROMBIN TIME (PATIENT) 10.9 SEC (9.7-13.0)
[2024-03-24 20:44] LABS: HEMATOCRIT 26.6 % (32.4-45.2); HEMOGLOBIN 8.5 GM/dL (10.7-15.3); MCH 28.8 pg (25.7-33.7); MCHC 31.9 g/dl (32.0-36.0); MEAN CELL VOLUME 90.5 fl (80-96); MEAN PLT VOLUME 7.2 fl (7.5-11.1); PLATELET COUNT 320 10^3/uL (134-434); RBC 2.94 M/mm3 (3.60-5.2); RDW 16.3 % (11.6-15.6); WHITE BLOOD COUNT 4.3 K/mm3 (4.0-10.0)
[2024-03-24 20:53] LABS: POTASSIUM 5.6 mmol/L (3.5-5.1)
[2024-03-24 20:55] LABS: BLOOD UREA NITROGEN 30.8 mg/dL (7-18); CALCIUM 9.3 mg/dL (8.5-10.1)
[2024-03-24 20:56] LABS: ALBUMIN 3.4 g/dl (3.4-5.0)
[2024-03-24 20:59] LABS: CREATININE 1.2 mg/dL (0.55-1.3)
[2024-03-24 21:00] LABS: BILIRUBIN,TOTAL 0.2 mg/dL (0.2-1); TOT PROT 8.9 g/dl (6.4-8.2)
[2024-03-24 21:16] LABS: ANISOCYTOSIS 2+; MACROCYTOSIS 0; TARGET CELLS 1+
[2024-03-24] MEDS: DEXTROSE 5%-NORMAL SALINE 1,000 ML IV ONE (22:35)
[2024-03-24] MEDS: INSULIN REGULAR HUMAN 100 UNITS/ML *VIAL IVPUSH ONE (22:35)
[2024-03-24] MEDS ORDERED: SODIUM ZIRCONIUM CYCLOSILICATE (LOKELMA) 10 GM PACKET ONE (22:41)
[2024-03-24] MEDS: SODIUM ZIRCONIUM CYCLOSILICATE (LOKELMA) 5 GM PACKET PO ONE (23:04)
[2024-03-24] MEDS: SODIUM CHLORIDE 0.9% 500 ML INFUS.BAG IV ONE (23:04)
[2024-03-24] MEDS ORDERED: CLINDAMYCIN HCL 150 MG CAPSULE (FP) ONE (23:05)
[2024-03-24] MEDS: CLINDAMYCIN HCL 150 MG CAPSULE (FP) PO ONE (23:12)
[2024-03-25 15:15] LABS: N-TERMINAL BNP 1064.1 pg/ml (5-125)
== END 2024-03-25 00:13 | disposition home or self-care (01) ==
LOC: JER 19:09
DX: L03.119 Cellulitis of unspecified part of limb (principal); F19.10 Other psychoactive substance abuse, uncomplicated; R51.9 Headache, unspecified; M25.511 Pain in right shoulder; M54.50 Low back pain, unspecified; M25.571 Pain in right ankle and joints of right foot; W18.39XA Other fall on same level, initial encounter; Y92.002 Bathroom of unspecified non-institutional (private) residence as the place of occurrence of the external cause
CPT/HCPCS: 36415; 70450-TC; 72125-TC; 73610-TC-LT-FY; 80053; 83880; 85025; 85610; 93005; 93010; 93971-TC; 99285-25